=== PATIENT | female | born 1950 | race Caucasian/White ===

== ENCOUNTER 2024-11-25 11:18 | Inpatient (IN) | payer MEDICARE ==
[2024-11-25] MEDS: Mirabegron 25 MG Tab Extended Release PO SCH (21:50)
[2024-11-26] MEDS: Ondansetron 4 MG Tab.DIS PO PRN (09:51)
[2024-11-27 05:51] LABS: PLATELET COUNT,PLT 263.0 K/uL (130-375); RED BLOOD CELL COUNT 2.84 M/uL (3.77-5.24); WHITE BLOOD CELL COUNT,WBC 13.3 K/uL (3.2-11.0)
[2024-11-27 06:08] LABS: BLOOD UREA NITROGEN,BUN 68.0 mg/dL (7-18); CARBON DIOXIDE,CO2 27.0 mmol/L (21-32); CHLORIDE,CL 97.0 mmol/L (100-108); EST CRCL DRUG DOSING (CG) 7.47 mL/min; ESTIMATED GFR 8.0 mL/min (>60); GLUCOSE RANDOM 105.0 mg/dL (74-106); POTASSIUM,K 4.0 mmol/L (3.6-5.2); SODIUM,NA 133.0 mmol/L (140-148)
[2024-11-27 06:19] LABS: CREATININE 5.1 mg/dL (0.6-1.0)
[2024-11-27] MEDS ORDERED: Sodium Chloride 0.9% 10 ML Syringe FLUSH PRN (07:34)
[2024-11-28 06:03] LABS: BLOOD UREA NITROGEN,BUN 68.0 mg/dL (7-18); CARBON DIOXIDE,CO2 24.0 mmol/L (21-32); CHLORIDE,CL 102.0 mmol/L (100-108); CREATININE 3.0 mg/dL (0.6-1.0); EST CRCL DRUG DOSING (CG) 12.7 mL/min; ESTIMATED GFR 16.0 mL/min (>60); GLUCOSE RANDOM 94.0 mg/dL (74-106); POTASSIUM,K 3.7 mmol/L (3.6-5.2); SODIUM,NA 134.0 mmol/L (140-148)
[2024-11-28] MEDS: Sennosides/Docusate Sodium 50-8.6 MG Tab PO PRN (13:30)
[2024-11-28] MEDS: Magnesium Hydroxide 400 MG/5 ML Susp 30 ML Cup PO PRN (13:31)
[2024-11-28] MEDS: FLUOCINOLONE EARBOTH SCH (15:22)
[2024-11-28] MEDS: OFLOXACIN 0.3% EARBOTH SCH (15:22)
[2024-11-28] MEDS ORDERED: OFLOXACIN EARBOTH SCH (17:00)
[2024-11-28] MEDS ORDERED: FLUOCINOLONE ACETONIDE OIL EARBOTH SCH (17:00)
[2024-11-28] MEDS ORDERED: Sodium Phosphate,Monobasic/Sodium Phosphate,Dibasic Enema 133 ML Bottle RECTAL PRN (18:00)
[2024-11-29 06:07] LABS: BLOOD UREA NITROGEN,BUN 41.0 mg/dL (7-18); CARBON DIOXIDE,CO2 28.0 mmol/L (21-32); CHLORIDE,CL 106.0 mmol/L (100-108); CREATININE 1.1 mg/dL (0.6-1.0); EST CRCL DRUG DOSING (CG) 34.65 mL/min; ESTIMATED GFR 52.0 mL/min (>60); GLUCOSE RANDOM 101.0 mg/dL (74-106); POTASSIUM,K 4.0 mmol/L (3.6-5.2); SODIUM,NA 139.0 mmol/L (140-148)
== END 2024-11-30 10:10 | DRG 563 ==
LOC: JP.ED 11:18 → JP.MS 17:50
PROVIDERS: ADMIT Internal Medicine; ATTEND Hospitalist
DX: S42.201A Unspecified fracture of upper end of right humerus, initial encounter for closed fracture (principal); N17.9 Acute kidney failure, unspecified; Z88.6 Allergy status to analgesic agent; S92.901A Unspecified fracture of right foot, initial encounter for closed fracture; Z91.030 Bee allergy status; I10 Essential (primary) hypertension; W01.198A Fall on same level from slipping, tripping and stumbling with subsequent striking against other object, initial encounter; H54.7 Unspecified visual loss; E78.00 Pure hypercholesterolemia, unspecified; K59.00 Constipation, unspecified; F41.9 Anxiety disorder, unspecified; F32.A Depression, unspecified; Z86.16 Personal history of COVID-19; Z88.2 Allergy status to sulfonamides; Z79.899 Other long term (current) drug therapy; Z88.8 Allergy status to other drugs, medicaments and biological substances; Z98.890 Other specified postprocedural states
CPT/HCPCS: 73030 ×2; 73060 ×2; 73700 ×2; 76377 ×2; 99284; 99285; A9270; 36415; 51702; 80048; 83735; 85027; 97110-GP; 97162-GP; 97165-GO; 97530-GP; 99222; 99232; 99238; J1650; J7030; Q0162

== ENCOUNTER 2024-12-19 09:06 | Inpatient (IN) | payer MEDICARE ==
[~2024-12-19 09:06] MED LIST: Dexamethasone 4 MG/ML SDV ONE; Glycopyrrolate 0.2 MG/ML 5 ML MDV ONE; Ondansetron 4 MG/2 ML SDV ONE; Propofol 200 MG/20 ML SDV ONE; Succinylcholine 200 MG/10 ML MDV ONE; fentaNYL 250 MCG/5 ML SDV ONE
[2024-12-19] MEDS ORDERED: Ketorolac 30 MG/ML SDV ONE (10:10)
[2024-12-19] MEDS ORDERED: fentaNYL 100 MCG/2 ML SDV ONE (10:11)
[2024-12-19 10:16] LABS: PLATELET COUNT,PLT 388.0 K/uL (130-375); RED BLOOD CELL COUNT 3.4 M/uL (3.77-5.24); WHITE BLOOD CELL COUNT,WBC 7.2 K/uL (3.2-11.0)
[2024-12-19 10:35] LABS: A/G RATIO 0.9 (1.2-2.2); ALANINE AMINOTRANSFERASE,ALT 24 U/L (12-78); ASPARTATE AMNIOTRANSFERASE,AST 18 U/L (15-37); BILIRUBIN TOTAL 0.4 mg/dL (0.2-1.0); BLOOD UREA NITROGEN,BUN 9 mg/dL (7-18); CARBON DIOXIDE,CO2 30 mmol/L (21-32); CHLORIDE,CL 104 mmol/L (100-108); CREATININE 0.7 mg/dL (0.6-1.0); ESTIMATED GFR 90 mL/min (>60); GLUCOSE RANDOM 121 mg/dL (74-106); POTASSIUM,K 4.2 mmol/L (3.6-5.2); PROTEIN TOTAL,TP 7.3 g/dL (6.4-8.2); SODIUM,NA 140 mmol/L (140-148)
[2024-12-19] MEDS: Lactated Ringers 1,000 ML IV SCH (11:07)
[2024-12-19] MEDS: Nozin Nasal Sanitizer NASBOTH SCH ×2 (11:08→20:37)
[2024-12-19] MEDS ORDERED: Ondansetron 4 MG/2 ML SDV IVPUSH PRN (11:30)
[2024-12-19] MEDS ORDERED: Midazolam 1 MG/ML 2 ML SDV ONE (11:39)
[2024-12-19] MEDS ORDERED: ePHEDrine 50 MG/ML SDV ONE (12:26)
[2024-12-19] MEDS ORDERED: Phenylephrine 1% 10 MG/ML SDV ONE (12:30)
[2024-12-19] MEDS ORDERED: Atropine/Diphenoxylate 0.025-2.5 MG Tab PO PRN (14:00)
[2024-12-19] MEDS ORDERED: Lactated Ringers 1,000 ML ONE (14:38)
[2024-12-19] MEDS: Ketorolac 15 MG/ML SDV IVPUSH PRN (16:22)
[2024-12-19] MEDS ORDERED: Naloxone 0.4 MG/ML SDV IVPUSH PRN (17:06)
[2024-12-19] MEDS: Mirabegron 25 MG Tab Extended Release PO SCH (20:41)
[2024-12-19] MEDS ORDERED: Non-Formulary Medication 1 Each (Vit A/Vit C/Vit E/Zinc/Copper [Preservision] 1 EACH Table PO SCH (21:00)
[2024-12-19] MEDS: Nystatin Crm 15 GM Tube TOP SCH (21:43)
[2024-12-20 05:59] LABS: PLATELET COUNT,PLT 299.0 K/uL (130-375); RED BLOOD CELL COUNT 2.52 M/uL (3.77-5.24); WHITE BLOOD CELL COUNT,WBC 13.6 K/uL (3.2-11.0)
== END 2024-12-21 13:45 | DRG 483 ==
LOC: JP.SDS 09:06 → JP.MS 15:45 → JP.SDS 12-20 08:21 → JP.MS 12-20 08:21
PROVIDERS: ADMIT Specialist; ATTEND Specialist
PROC: 0RRJ0JZ Replacement of Right Shoulder Joint with Synthetic Substitute, Open Approach (ICD-10-PCS; principal; 2024-12-19 10:30)
DX: S42.201A Unspecified fracture of upper end of right humerus, initial encounter for closed fracture (principal)
CPT/HCPCS: 36415; 73020-26-RT; 73020-RT; 80053; 85018; 85027; 97110-GO; 97161-GP; 97165-GO; 97535-GO; A4217; A9270-GY; C1713; C1776; J0330; J0665; J0690; J1100; J1596; J1650; J1885; J2250; J2371; J2405; J2704; J2710; J3010; J3490; J7030; J7120